=== PATIENT | male | born 1955 | race Caucasian/White ===

== ENCOUNTER → 2023-01-13 14:48 | Outpatient (REF) | payer OTHER, SELFPAY ==
--- NOTE | 2023-01-13 14:55 | CA_ITS ---
Transthoracic Echocardiogram Patient (Last, First, Middle): Felix Slater S Gender: Male Date of : 1955 Age: 67 Procedure Date: 01/13/2023 Procedure Type: Transthoracic Echocardiogram Location: [facility] Height: 175.26 cm Weight: 92.08 kg BSA: 2.08 m2 Heart Rate: bpm BP: 133 / 69 mmHg Insurance Underwriter: Referring MD: Ricky Napier MD [facility] Physical Therapist: Sonny Clarke MD Symptoms: I48.0 PAF Study Quality: Fair ECG Rhythm: Sinus Conclusions: - Essentially normal study with noted mild right ventricular enlargement, could be due to off axis view. Findings Procedure Information Contrast agent, definity, is being given per protocol without apparent complications. Left Ventricle Normal left ventricular size, thickness, and systolic function. The visually estimated ejection fraction is between 60-65%. Spectral Doppler is indicative of a normal filling pattern. Right Ventricle Mildly increased right ventricular cavity size. There is normal right ventricular systolic function. Atria Both atria are normal in size. There is lipomatous hypertrophy of the interatrial septum. There is no evidence of interatrial shunt. Aortic Valve Normal aortic valve structure and function. There is no aortic valve stenosis. There is no aortic valve regurgitation. Mitral Valve Normal mitral valve structure and function. There is trace mitral valve regurgitation. There is no mitral valve stenosis. Pulmonic Valve The pulmonic valve is likely normal. There is trace pulmonic valve regurgitation. Tricuspid Valve Normal tricuspid valve structure. There is trace tricuspid valve regurgitation. The right ventricular systolic pressure is normal. The right ventricular systolic pressure is 21 mmHg. Normal right atrial pressure. There is no evidence of pulmonary hypertension. Great Vessels All visible segments of the aorta are normal in size. The pulmonary artery was not well visualized. Venous The inferior vena cava is normal in size and collapses greater than 50% with inspiration. Pericardium/Pleural There is no evidence of pericardial effusion. Prior Study Comparison Changes noted compared to prior study dated: 12/01/2018. RV appears to be mildly enlarged, could be due to off axis views Measurements 2D Linear Measurements IVSd: 0.99 0.6-0.9/0.6-1.0 cm LVIDd: 4.36 3.9-5.3/4.2-5.9 cm LVIDd Index: 2.10 2.4-3.2/2.2-3.1 cm/m2 LVIDs: 2.52 2.0-3.6 cm LVPWd: 1.10 0.7-1.1 cm Ao Root: 3.30 2.1-3.5 cm LA Diam: 3.70 2.7-3.8/3.0-4.0 cm LAIDs Index: 1.78 1.5-2.3 cm/m2 LV Mass: 193.39 67-162/88-224 g LV Mass Index: 92.98 43-95/49-115 g/m2 LVOT Diam: 2.40 3.0+(-)1.3 cm 2D Systolic Function EF 4C: 63.80 >55% EF 2C: 58.20 >55% EF BiP: 63.50 >55% Mitral Valve MV Pk E: 0.90 MV PK A: 0.74 MV Decel Time: 202.00 E/A: 1.20 E'Lateral: 7.83 E'Medial: 8.16 E/E' Med: 11.00 E/E' Lat: 11.50 PHT: 59.00 MVA PHT: 3.73 Decel Coffey: 4.46 Aortic Valve AoV Pk Robert: 1.36 AoV Mn Robert: 0.91 AoV VTI: 0.32 AoV Pk Grad: 7.00 Aov Mn Grad: 4.00 FALGUNI Cont.VTI: 2.57 LVOT LVOT Pk Robert: 0.76 LVOT Mn Robert: 0.50 LVOT VTI: 0.18 LVOT Pk Grad: 2.00 LVOT Mn Grad: 1.00 LVOT Diam: 2.40 LVOT Area: 4.52 Diastolic Function MV Pk E: 0.90 MV Pk A: 0.74 E/A: 1.20 E'Medial: 8.16 E/E' Med: 11.00 E' Laterial: 7.83 E/E' Lat: 11.50 Right Ventricle TAPSE (mm): 30.00 TVS' Robert: 14.00 Tricuspid Valve TR Pk Robert: 2.13 TR Pk Grad: 18.00 RA Press: 3.00 RVSP: 21.00 Great Vessels Aorta Ao Root-2D: 3.30 2.0-3.7 cm Ao Asc: 3.20 2.1-3.4 cm Pulmonary Valve PV Pk Robert: 0.86 Peak PV Grad: 3.00 Updated in Other Vendor System with Status of Final Sonny Clarke MD electronically signed on 01/14/2023 9:20:00 AM with status of Final
== END ==
LOC: HO.CARD 14:48
PROVIDERS: PCP Family Medicine; Visit Provider Internal Medicine Cardiovascular Disease
DX: I48.0 Paroxysmal atrial fibrillation (principal)
CPT/HCPCS: 93306; Q9957